=== PATIENT | female | born 1935 | race Caucasian/White ===

== ENCOUNTER 2019-08-01 14:00 | Emergency (ER) | payer MEDICARE, MEDICAID ==
[~2019-08-01] VITALS: Ht 152.4 cm; Wt 68.0 kg
[2019-08-01 14:07] VITALS: BP_SYST 138
[2019-08-01] MEDS ORDERED: NACL 0.9% 1,000 ML IV ONE (14:45)
[2019-08-01 15:08] LABS: BASOPHILS % (AUTO) 0.1 % (0.0-2.0); EOSINOPHILS % (AUTO) 0.3 % (0.0-4.0); HEMATOCRIT 41.2 % (36-48); HEMOGLOBIN 14.3 g/dL (12.0-16.0); MEAN CORPUSCULAR HEMOGLOBIN 32 pg (27-31); MEAN CORPUSCULAR HGB CONC 35 % (32-36); MEAN CORPUSCULAR VOLUME 93 fL (79.0-98.0); MONOCYTES # (AUTO) 0.2 K/uL (0.0-1.0); MONOCYTES % (AUTO) 2.5 % (1.7-9.3); NEUTROPHILS # (AUTO) 8.5 K/uL (1.8-7.7); NEUTROPHILS % (AUTO) 87.1 % (40.0-70.0); PLATELET COUNT (AUTO) 154 K/uL (130-430); RED BLOOD CELL COUNT(AUTO) 4.41 MIL/uL (4.2-6.2); RED CELL DISTRIBUTION WIDTH 13.8 % (9.0-15.0); WHITE BLOOD COUNT (AUTO) 9.8 K/uL (4.8-10.8)
[2019-08-01 16:20] LABS: SODIUM SERUM 130 mmol/L (136-145)
[2019-08-01 16:22] LABS: ANION GAP 15 (5-15); CALCIUM 8.9 mg/dL (8.4-11.0); CHLORIDE 93 mmol/L (98-107); CREATININE 2.25 mg/dL (0.55-1.30); GLUCOSE 102 mg/dL (70-99); POTASSIUM 2.6 mmol/L (3.5-5.1); UREA NITROGEN, BLOOD 23 mg/dL (8-21)
[2019-08-01 16:28] LABS: HDL CHOLESTEROL 41 mg/dL (>55)
[2019-08-01 16:29] LABS: CHOLESTEROL 77 mg/dL (<200); LDL CHOLESTEROL 15 mg/dL (<100); TRIGLYCERIDES 88 mg/dL (30-150)
[2019-08-01] MEDS ORDERED: POTASSIUM CHLORIDE 20 MEQ/PKT PACKET PO ONE (16:30)
[2019-08-01 16:36] LABS: BARBITURATE, URINE NEGATIVE (NEG <=200)
[2019-08-01 16:37] LABS: BENZODIAZEPINE, URINE POSITIVE (NEG <=150); CANNABINOID, URINE NEGATIVE (NEG <=50); COCAINE, URINE NEGATIVE (NEG <=150); METHAMPHETAMINES SCREEN,URINE NEGATIVE (NEG <=500); OPIATE, URINE NEGATIVE (NEG <=100); PHENCYCLIDINE SCREEN,URINE NEGATIVE (NEG <=25); UR TRICYCLIC ANTIDEPRESSANTS NEGATIVE (NEG <=300); URINE AMPHETAMINE NEGATIVE (NEG <=500); URINE METHADONE NEGATIVE (NEG <=200); URINE OXYCODONE SCREEN NEGATIVE (NEG <=100); URINE PROPOXYPHENE SCREEN NEGATIVE (NEG <=300)
[2019-08-01 16:39] LABS: ASPARTATE AMINOTRANSFERASE 1330 U/L (10-37); TOTAL BILIRUBIN 1.4 mg/dL (0.0-1.0)
[2019-08-01 16:40] LABS: ALANINE AMINOTRANSFERASE 1738 U/L (12-78); ALBUMIN 3.4 g/dL (3.4-4.8); FREE T4 (FREE THYROXINE) 1.5 ng/dl (0.8-1.5); THYROID STIMULATING HORMONE 1.53 uIu/mL (0.36-3.74)
[2019-08-01 16:41] LABS: ACETAMINOPHEN 45 ug/mL (1-30)
[2019-08-01] MEDS ORDERED: POTASSIUM CHLORIDE 40 MEQ in NS 250 ML IV ONE (16:45)
[2019-08-01 17:15] LABS: ALCOHOL, BLOOD 3 mg/dL (<10)
[2019-08-01 18:11] LABS: CLARITY/URINE CLEAR (CLEAR); COLOR,URINE YELLOW (YELLOW); KETONES,URINE NEGATIVE (NEGATIVE); PROTEIN URINE 2+ (NEGATIVE)
[2019-08-01 18:12] LABS: BILIRUBIN,URINE 1+ (NEGATIVE); BLOOD, URINE 2+ (NEGATIVE); GLUCOSE,URINE NEGATIVE (NEGATIVE); LEUKOCYTE ESTERASE ,URINE TRACE (NEGATIVE); NITRITE, URINE NEGATIVE (NEGATIVE)
[2019-08-01 18:18] LABS: BACTERIA,URINE FEW /HPF (None Seen)
[2019-08-01 19:40] LABS: INR 1.2 (0.8-1.2); PROTHROMBIN TIME 12.2 SECS (9.5-12.5)
[2019-08-01 22:00] VITALS: BP_SYST 131
[2019-08-05 12:47] LABS: HEMOGLOBIN A1C 5.7 % (4.8-5.6)
== END 2019-08-01 22:00 | disposition short-term general hospital (02) ==
LOC: SED 14:00
DX: F32.9 Major depressive disorder, single episode, unspecified (principal); E87.6 Hypokalemia; N17.9 Acute kidney failure, unspecified; F13.20 Sedative, hypnotic or anxiolytic dependence, uncomplicated; R74.0 Nonspecific elevation of levels of transaminase and lactic acid dehydrogenase [LDH]; I10 Essential (primary) hypertension
CPT/HCPCS: 36415; 70450; 80053; 80061; 80307; 81000; 82140; 83036; 84439; 84443; 84479; 85025; 85610; 87086; 87186; 93005; 96365; 96366; 99285; G0480; G0481; G0482; J3480; J7030; J7050